=== PATIENT | male | born 1990 | race Caucasian/White ===

== ENCOUNTER 2016-09-18 20:34 | Emergency (ER) | payer OTHER | END 2016-09-18 23:00 | disposition home or self-care (01) | LOC: ER1 20:34 | DX: S50.12XA Contusion of left forearm, initial encounter (principal); W10.9XXA Fall (on) (from) unspecified stairs and steps, initial encounter; Y92.009 Unspecified place in unspecified non-institutional (private) residence as the place of occurrence of the external cause | CPT/HCPCS: 73030; 73060; 73080; 73090; 73110; 73130; 96374; 96375; 99283; J2270; J2405 ==

== ENCOUNTER 2016-10-06 14:51 | Emergency (ER) | payer OTHER | END 2016-10-06 15:45 | disposition home or self-care (01) | LOC: ER1 14:51 | DX: L23.7 Allergic contact dermatitis due to plants, except food (principal) | CPT/HCPCS: 96372; 99282; J1100 ==

== ENCOUNTER 2020-09-01 17:57 | Emergency (ER) | payer OTHER ==
[~2020-09-01 17:57] MED LIST: BUSPIRONE HCL5 MG PO; MOBIC15 MG PO
[2020-09-01 19:04] LABS: HEMOGLOBIN 15.5 gm/dl (14.0-17.5); RED BLOOD COUNT 5.22 M/UL (4.20-5.50)
[2020-09-01 19:31] LABS: BUN/CREATININE RATIO 19 (0-10)
== END 2020-09-02 06:03 | disposition home or self-care (01) ==
LOC: ER1 17:57
PROVIDERS: Preventive Medicine Occupational Medicine
DX: R45.851 Suicidal ideations (principal); F15.10 Other stimulant abuse, uncomplicated; J45.909 Unspecified asthma, uncomplicated; Z20.822 Contact with and (suspected) exposure to COVID-19
CPT/HCPCS: 0240U; 36600; 71045; 80053; 80307; 81001; 82140; 82550; 82553; 82803; 83690; 83874; 84484; 85025; 85652; 86140; 87086; 93005; 96374; 99285; G0480; J2060

== ENCOUNTER 2020-11-16 14:49 | Inpatient (IN) | payer OTHER ==
[~2020-11-16] VITALS: Ht 170.2 cm; Wt 68.0 kg
[2020-11-16 17:50] LABS: HEMOGLOBIN 14.4 gm/dl (14.0-17.5); RED BLOOD COUNT 4.74 M/UL (4.20-5.50); WHITE BLOOD COUNT 14.5 K/UL (4.5-11.0)
[2020-11-16 18:24] LABS: BUN/CREATININE RATIO 11 (0-10)
[2020-11-17 03:46] LABS: HEMOGLOBIN 14.2 gm/dl (14.0-17.5); RED BLOOD COUNT 4.7 M/UL (4.20-5.50); WHITE BLOOD COUNT 15.9 K/UL (4.5-11.0)
[2020-11-17 04:09] LABS: BUN/CREATININE RATIO 13 (0-10)
[2020-11-18 04:31] LABS: BUN/CREATININE RATIO 15 (0-10)
[2020-11-19 04:48] LABS: BUN/CREATININE RATIO 14 (0-10)
[2020-11-19] MEDS ORDERED: BACTRIM DS TAB1 EACH PO (14:27)
--- NOTE | 2020-11-19 15:55 | NUR ---
DRESSING CHANGED PER MD ORDERS. PATIENT TOLERATED WELL.
== END 2020-11-19 16:51 | disposition home or self-care (01) | DRG 580 ==
LOC: ER1 14:49 → M/S 17:17 → CDU 17:17 → M/S 19:28
PROVIDERS: Orthopaedic Surgery; Physician Assistant; ADMIT Internal Medicine
PROC: 0JBK0ZZ Excision of Left Hand Subcutaneous Tissue and Fascia, Open Approach (ICD-10-PCS; principal; 2020-11-17 09:37)
DX: L02.512 Cutaneous abscess of left hand (principal); I96 Gangrene, not elsewhere classified; B95.62 Methicillin resistant Staphylococcus aureus infection as the cause of diseases classified elsewhere; F10.10 Alcohol abuse, uncomplicated; L03.012 Cellulitis of left finger; F17.210 Nicotine dependence, cigarettes, uncomplicated; I10 Essential (primary) hypertension; Z20.822 Contact with and (suspected) exposure to COVID-19; Z91.14 Patient's other noncompliance with medication regimen; Z88.8 Allergy status to other drugs, medicaments and biological substances; Z80.6 Family history of leukemia
CPT/HCPCS: 36415; 73130; 80048; 80053; 80202; 80307; 83605; 83735; 85025; 85652; 86140; 87040; 87070; 87077; 87081; 87186; 87205; 90471; 90715; 99284; G0480; J0690; J1100; J1885; J2250; J2270; J2405; J2704; J3010; J3370; J7070; J7120; U0002

== ENCOUNTER 2020-11-27 19:20 | Emergency (ER) | payer SELFPAY ==
[~2020-11-27 19:20] MED LIST changes: +BACTRIM DS TAB1 EACH PO
== END 2020-11-27 21:08 | disposition left against medical advice (07) ==
LOC: ER1 19:20
DX: Z53.21 Procedure and treatment not carried out due to patient leaving prior to being seen by health care provider (principal)

== ENCOUNTER 2021-01-07 16:19 | Emergency (ER) | payer OTHER ==
[2021-01-07 17:04] LABS: HEMOGLOBIN 14.7 gm/dl (14.0-17.5); RED BLOOD COUNT 5.13 M/UL (4.20-5.50); WHITE BLOOD COUNT 7.6 K/UL (4.5-11.0)
[2021-01-07 17:45] LABS: BUN/CREATININE RATIO 12 (0-10)
[2021-01-07] MEDS ORDERED: ZOFRAN ODT 4 MG4 MG SL (17:58)
[2021-01-07] MEDS ORDERED: SEROQUEL200 MG PO (18:08)
[2021-01-07] MEDS ORDERED: ROBAXIN 750 MG750 MG PO (18:08)
[2021-01-07] MEDS ORDERED: INDERAL TAB 1010 MG PO (18:08)
[2021-01-07] MEDS ORDERED: VISTARIL25 MG PO (18:08)
== END 2021-01-07 18:25 | disposition home or self-care (01) ==
LOC: ER1 16:19
PROVIDERS: Physician Assistant
DX: U07.1 COVID-19 (principal); I10 Essential (primary) hypertension; Z88.1 Allergy status to other antibiotic agents; F17.200 Nicotine dependence, unspecified, uncomplicated
CPT/HCPCS: 80053; 85025; 96374; 96376; 99284; J2405

== ENCOUNTER 2021-01-17 16:41 | Emergency (ER) | payer OTHER ==
[~2021-01-17 16:41] MED LIST changes: +INDERAL TAB 1010 MG PO; +ROBAXIN 750 MG750 MG PO; +SEROQUEL200 MG PO; +VISTARIL25 MG PO; +ZOFRAN ODT 4 MG4 MG SL
[2021-01-17 21:26] LABS: HEMOGLOBIN 13.3 gm/dl (14.0-17.5); RED BLOOD COUNT 4.86 M/UL (4.20-5.50); WHITE BLOOD COUNT 9.8 K/UL (4.5-11.0)
[2021-01-17 21:47] LABS: BUN/CREATININE RATIO 16 (0-10)
== END 2021-01-18 05:13 | disposition home or self-care (01) ==
LOC: ER1 16:41
PROVIDERS: Emergency Medicine; Family Medicine
DX: S00.83XA Contusion of other part of head, initial encounter (principal); Z88.8 Allergy status to other drugs, medicaments and biological substances; Z79.899 Other long term (current) drug therapy; F17.210 Nicotine dependence, cigarettes, uncomplicated; X58.XXXA Exposure to other specified factors, initial encounter
CPT/HCPCS: 70450; 70486; 73130; 80053; 80307; 85025; 99284; G0480

== ENCOUNTER 2021-03-12 19:14 | Emergency (ER) | payer OTHER | END 2021-03-13 00:45 | disposition short-term general hospital (02) | LOC: ER1 19:14 | DX: S51.812A Laceration without foreign body of left forearm, initial encounter (principal); F32.9 Major depressive disorder, single episode, unspecified; F17.210 Nicotine dependence, cigarettes, uncomplicated; Z20.822 Contact with and (suspected) exposure to COVID-19; X78.8XXA Intentional self-harm by other sharp object, initial encounter | CPT/HCPCS: 12002; 90471; 90715; 99284; U0002 ==